=== PATIENT | male | born 1990 | race Caucasian/White ===

== ENCOUNTER 2017-08-15 21:17 | Emergency (ER) | payer OTHER ==
[2013-05-10 08:04] VITALS: BMI 41.4
[~2017-08-15 21:17] MED LIST: NORCO 5/325 TAB1 TA1 PO
[2017-08-15 21:58] LABS: BASOPHILS 0.3 % (0-2); EOSINOPHILS 1.5 % (0-7); HEMOGLOBIN 14.5 g/dL (13.5-17.5); IMMATURE GRANULOCYTES 0.8 % (0-5); LYMPHOCYTES 33.7 % (15-50); MCH 29.8 pg (26.0-34.0); MCHC 33.7 g/dL (31.0-37.0); MCV 88.5 fL (80.0-100.0); MEAN PLATELET VOLUME 11.6 fL (7.4-10.4); MONOCYTES 10.8 % (2-11); NEUTROPHILS 52.9 % (40-80); PLATELET COUNT 198 10x3/uL (130-400); RBC 4.86 10x6/uL (4.20-6.10); RDW 13.3 % (11.5-14.5); WBC 11.8 10x3/uL (4.8-10.8)
[2017-08-15 22:10] LABS: ALBUMIN 3.4 g/dL (3.4-5.0); ALKALINE PHOSPHATASE 52 U/L (46-116); ALT (SGPT) 50 U/L (10-68); BILIRUBIN - TOTAL 0.56 mg/dL (0.2-1.3); CALC OSMOLALITY 277 mosm/kg (275-300); CALCIUM 8.3 mg/dL (8.5-10.1); CHLORIDE - SERUM 105 mmol/L (98-107); CREATININE - SERUM 1.2 mg/dL (0.6-1.3); GLUCOSE 101 mg/dL (74-106); POTASSIUM - SERUM 3.8 mmol/L (3.5-5.1); PROTEIN - SERUM 6.4 g/dL (6.4-8.2); SODIUM 138 mmol/L (136-145); UREA NITROGEN 17 mg/dL (7-18); eGFR NON AFRICAN AMERICAN 76 mL/min (90-120)
[2017-08-15 22:34] LABS: CKMB 5.1 U/L (0.0-3.6); CREATINE KINASE 312 UL (21-232)
[2017-08-15 22:53] LABS: TROPONIN-I < 0.017 ng/mL (0.000-0.060)
== END 2017-08-16 00:10 | disposition home or self-care (01) ==
LOC: D.ER 21:17
PROVIDERS: Family Medicine
DX: R09.1 Pleurisy (principal); R07.89 Other chest pain; J20.9 Acute bronchitis, unspecified; F17.200 Nicotine dependence, unspecified, uncomplicated; R00.1 Bradycardia, unspecified

== ENCOUNTER 2017-11-14 21:35 | Emergency (ER) | payer OTHER ==
[2013-05-10 08:04] VITALS: BMI 41.4
[2017-11-14 23:20] LABS: BASOPHILS 0.3 % (0-2); EOSINOPHILS 2.6 % (0-7); HEMATOCRIT 44.4 % (42.0-54.0); HEMOGLOBIN 15.5 g/dL (13.5-17.5); IMMATURE GRANULOCYTES 0.3 % (0-5); LYMPHOCYTES 22.2 % (15-50); MCH 30.4 pg (26.0-34.0); MCHC 34.9 g/dL (31.0-37.0); MCV 87.1 fL (80.0-100.0); MEAN PLATELET VOLUME 11.4 fL (7.4-10.4); NEUTROPHILS 64.6 % (40-80); PLATELET COUNT 190 10x3/uL (130-400); RDW 13.3 % (11.5-14.5); WBC 9.5 10x3/uL (4.8-10.8)
[2017-11-14 23:38] LABS: ALBUMIN 3.5 g/dL (3.4-5.0); ANION GAP 9.7 mmol/L (8-16); BILIRUBIN - TOTAL 0.99 mg/dL (0.2-1.3); CALCIUM 8.8 mg/dL (8.5-10.1); CARBON DIOXIDE 29.9 mmol/L (21.0-32.0); CREATININE - SERUM 1.3 mg/dL (0.6-1.3); POTASSIUM - SERUM 3.6 mmol/L (3.5-5.1); PROTEIN - SERUM 6.3 g/dL (6.4-8.2)
== END 2017-11-15 00:08 | disposition home or self-care (01) ==
LOC: D.ER 21:35
PROVIDERS: Physician Assistant Medical
DX: J45.901 Unspecified asthma with (acute) exacerbation (principal)

== ENCOUNTER → 2017-12-15 09:06 | Outpatient (CLI) | payer OTHER ==
[2013-05-10 08:04] VITALS: BMI 41.4
== END | disposition home or self-care (01) ==
LOC: D.NM 09:06
DX: R10.11 Right upper quadrant pain (principal)

== ENCOUNTER 2018-01-01 07:56 | Day surgery (SDC) | payer OTHER ==
[~2018-01-01] VITALS: Ht 193 cm; Wt 158.3 kg
--- NOTE | ~2018-01-01 | OP ---
PATIENT NAME: AMINTA KANG MEDICAL RECORD: [id number] :86 LOCATION:[facility] ADMISSION DATE: SURGEON: INOCENTE POSADA MD DATE OF OPERATION: 01/01/2018 PREOPERATIVE DIAGNOSES: 1. Biliary dyskinesia. 2. Hypertension. 3. Asthma. 4. Morbid obesity with a body mass index of 42. POSTOPERATIVE DIAGNOSES: 1. Biliary dyskinesia. 2. Hypertension. 3. Asthma. 4. Morbid obesity with a body mass index of 42. PROCEDURE: Laparoscopic cholecystectomy. SURGEON: Inocente Posada MD REPORT OF PROCEDURE: The patient's abdomen was prepped and draped in sterile fashion. A cutdown was made on the superior aspect of the umbilicus, 0 Vicryls were placed in the fascia bilaterally and the fascia was incised with 15-blade. I then bluntly entered the peritoneal cavity and placed a 12-mm John port. Under direct visualization, a 5-mm trocar was placed in the epigastrium and two more 5-mm trocars were placed in the right subcostal region. The gallbladder was grasped and elevated. The cystic artery and cystic duct were dissected free and these were clipped proximally and distally and ligated in standard fashion. The gallbladder was then taken off the liver bed using electrocautery and placed into the right upper quadrant. Any bleeding from the liver bed was treated with electrocautery. At this point, the ports and insufflation were then removed and the gallbladder was taken out through the umbilicus. The umbilical fascia was closed with interrupted 0 Vicryls times 3. The wounds were then irrigated out with normal saline, infused with 10 mL of 0.25% Marcaine with epinephrine. The skin incisions were all closed with subcutaneous 5-0 Monocryl and dressed appropriately. COMPLICATIONS: None. CONDITION: Stable. ANESTHESIA: General endotracheal and local. BLOOD LOSS: Minimal. TRANSINT:[id number] Voice Confirmation ID: [id number] DOCUMENT ID: [id number] OPERATIVE REPORT [id number] AMINTA KANG CHRISTIAN MD CC: RHEA MAHONEY [id number] DICTATION DATE: 01/01/18 1252 FLOAT OPERATOR: 01/01/18 [address] [place] [id number]
[2018-01-01 09:00] LABS: BASOPHILS 0.4 % (0-2); EOSINOPHILS 4.3 % (0-7); HEMATOCRIT 44.5 % (42.0-54.0); HEMOGLOBIN 15.3 g/dL (13.5-17.5); IMMATURE GRANULOCYTES 0.6 % (0-5); LYMPHOCYTES 31.3 % (15-50); MCH 30.1 pg (26.0-34.0); MCHC 34.4 g/dL (31.0-37.0); MCV 87.6 fL (80.0-100.0); MEAN PLATELET VOLUME 11.6 fL (7.4-10.4); MONOCYTES 9.1 % (2-11); NEUTROPHILS 54.3 % (40-80); PLATELET COUNT 197 10x3/uL (130-400); RBC 5.08 10x6/uL (4.20-6.10); RDW 13.2 % (11.5-14.5); WBC 8.2 10x3/uL (4.8-10.8)
[2018-01-01 09:12] LABS: CALC OSMOLALITY 279 mosm/kg (275-300); CALCIUM 8.5 mg/dL (8.5-10.1); CARBON DIOXIDE 28.4 mmol/L (21.0-32.0); CHLORIDE - SERUM 104 mmol/L (98-107); GLUCOSE 103 mg/dL (74-106); POTASSIUM - SERUM 4.4 mmol/L (3.5-5.1); SODIUM 139 mmol/L (136-145); UREA NITROGEN 17 mg/dL (7-18); eGFR NON AFRICAN AMERICAN > 90 mL/min (90-120)
[2018-01-01] MEDS ORDERED: PROZAC40 MG PO (09:37)
[2018-01-01 09:39] VITALS: BP 124/63; Ht 193 cm; Wt 158.3 kg
[2018-01-01] MEDS ORDERED: HYDROCODONE-APA1 TAB PO (12:49)
== END 2018-01-01 16:50 | disposition home or self-care (01) ==
LOC: D.OPS 07:56 → D.PAN 10:00 → D.OPS 10:00
PROVIDERS: Surgery
DX: K82.8 Other specified diseases of gallbladder (principal); I10 Essential (primary) hypertension; J45.909 Unspecified asthma, uncomplicated; E66.01 Morbid (severe) obesity due to excess calories; Z68.41 Body mass index [BMI] 40.0-44.9, adult; Z01.812 Encounter for preprocedural laboratory examination

== ENCOUNTER 2020-08-09 20:27 | Emergency (ER) | payer MEDICAID ==
[~2020-08-09] VITALS: Ht 193 cm; Wt 176.8 kg
[~2020-08-09 20:27] MED LIST changes: +HYDROCODONE-APA1 TAB PO; +PROZAC40 MG PO
[2020-08-09 20:36] VITALS: Ht 193 cm; Wt 176.8 kg
[2020-08-09] MEDS ORDERED: DICLOFENAC SODI50 MG PO (20:39)
[2020-08-09] MEDS ORDERED: AUGMENTIN 875-11 TAB PO (23:02)
[2020-08-09] MEDS ORDERED: STERAPRED DS 1210 MG PO (23:02)
[2020-08-09 23:37] VITALS: BP 108/47
== END 2020-08-09 23:49 | disposition home or self-care (01) ==
LOC: D.ER 20:27
DX: J32.9 Chronic sinusitis, unspecified (principal); R51 Headache; M54.9 Dorsalgia, unspecified; J44.9 Chronic obstructive pulmonary disease, unspecified

== ENCOUNTER 2021-02-05 11:10 | Emergency (ER) | payer BC ==
[~2021-02-05] VITALS: Ht 193 cm; Wt 175.5 kg
[~2021-02-05 11:10] MED LIST changes: +AUGMENTIN 875-11 TAB PO; +DICLOFENAC SODI50 MG PO; +STERAPRED DS 1210 MG PO
[2021-02-05 11:14] VITALS: Ht 193 cm; Wt 175.5 kg
[2021-02-05] MEDS ORDERED: HYDROCODONE-AC1 EAC2 PO (12:23)
[2021-02-05 12:49] VITALS: BP 149/86
== END 2021-02-05 12:50 | disposition home or self-care (01) ==
LOC: D.ER 11:10
DX: M25.561 Pain in right knee (principal); E66.01 Morbid (severe) obesity due to excess calories; J44.9 Chronic obstructive pulmonary disease, unspecified

== ENCOUNTER 2021-04-18 05:11 | Day surgery (SDC) | payer BC ==
[~2021-04-18] VITALS: Ht 193 cm; Wt 172.4 kg
[~2021-04-18 05:11] MED LIST changes: +ADIPEX-P37.5 M1 PO; +HCTZ25 MG PO; +HYDROCODON-ACE1 EA10 PO; +HYDROCODONE-AC1 EAC2 PO; +NAPROSYN500 MG PO
[2021-04-18 06:11] LABS: CALC OSMOLALITY 279 mosm/kg (275-300); CALCIUM 8.4 mg/dL (8.5-10.1); CARBON DIOXIDE 24.5 mmol/L (21.0-32.0); CHLORIDE - SERUM 106 mmol/L (98-107); CREATININE - SERUM 0.9 mg/dL (0.6-1.3); POTASSIUM - SERUM 3.9 mmol/L (3.5-5.1); SODIUM 139 mmol/L (136-145); UREA NITROGEN 11 mg/dL (7-18); eGFR NON AFRICAN AMERICAN > 90 mL/min (90-120)
[2021-04-18 06:12] LABS: GLUCOSE 157 mg/dL (74-106)
[2021-04-18 06:24] LABS: HEMATOCRIT 42.6 % (42.0-54.0); HEMOGLOBIN 14.7 g/dL (13.5-17.5); MCH 29.2 pg (26.0-34.0); MCHC 34.6 g/dL (31.0-37.0); MCV 84.6 fL (80.0-100.0); RBC 5.04 10x6/uL (4.20-6.10); RDW 14.3 % (11.5-14.5); WBC 7.1 10x3/uL (4.8-10.8)
[2021-04-18 06:31] VITALS: BP 131/64; Ht 193 cm; Wt 172.4 kg
--- NOTE | 2021-04-18 10:29 | NUR ---
DC TEACHING COMPLETE TO PT AND GF. VERBALIZED UNDERSTANDING. 1050 PAIN MED GIVEN WITH SPRITE 1111 PIV DC'D WITH CATHETER INTACT, GF HELPING PT TO DRESS 1122 DC'D VIA WC BY THIS NURSE WITH ALL BELONGINGS AND DC PACKET TO POV WITH GF DRIVING.
--- NOTE | 2021-04-19 08:58 | OP ---
PATIENT NAME: AMINTA KANG MEDICAL RECORD: [id number] :88 LOCATION:[facility] ADMISSION DATE: SURGEON: ERROL MEADOWS MD DATE OF OPERATION: 04/18/2021 PREOPERATIVE DIAGNOSES: 1. Right knee pain. 2. Chondromalacia. 3. Possible medial meniscus tear. POSTOPERATIVE DIAGNOSES: 1. Right knee pain. 2. Chondromalacia. PROCEDURE PERFORMED: Right knee scope with chondroplasty and limited synovectomy. INDICATIONS FOR THE PROCEDURE: The patient is a 31-year-old male who injured his knee a few months ago while moving. He was putting pressure against his knee when he felt it shift and has been having pain in the patellofemoral region ever since. MRI was obtained showed some signal in the cartilage as well as along the medial meniscus. We have attempted treatment with therapy, but he has continued to have pain in his knee and has elected to proceed with surgery for knee arthroscopy. Risks, benefits and alternatives of surgery were discussed with the patient and consent was obtained. DESCRIPTION OF PROCEDURE: The patient was met in the holding area where his identity and confirmation of procedure was performed. The right lower extremity was marked. He was taken to the operating room and he was placed supine on the operating table and anesthesia was administered. Tourniquet was applied to the right thigh and the right leg was positioned in the leg gardner. Right lower extremity was prepped and draped in a sterile fashion. The patient received preoperative antibiotics and timeout was performed before initiating the case. On initiation of the case the leg was exsanguinated and the tourniquet was raised. Total tourniquet time was 47 minutes. We began with placement of our superior medial portal and inserted the cannula and filled the knee with fluid. We then placed our anterior lateral portal, inserted the camera and placed our anterior medial portal under direct visualization. Diagnostic knee arthroscopy was performed. There was some thickening of the capsule in the suprapatellar pouch. The patella and trochlea were in good condition. The medial and lateral gutters were clear. Medial compartment showed fissuring along the inner border of the medial femoral condyle and grade I chondromalacia of the medial tibial plateau. The meniscus appeared to be okay. The ACL was intact. Lateral compartment showed a grade I-II chondromalacia of the lateral tibial plateau. The lateral femoral condyle and meniscus were okay. A limited synovectomy was performed at the tissues of the anterior knee and the infrapatellar fat pad. We were then able to visualize the fissuring better and it appeared to extend along the weightbearing surface of that inner border of the medial femoral condyle approximately 2 x 2 cm area. We therefore decided to perform KIAN harvest for potential procedure in the future. A ring curette was used to harvest cartilage from the inner border of the lateral femoral condyle. Two good pieces were obtained and will be sent for specimen. Limited synovectomy was performed at the suprapatellar pouch as well and this completed our procedure. Before and after images were obtained. The instruments were removed and fluid was drained from the knee. Portal sites were infiltrated with 0.25% Marcaine with OPERATIVE REPORT [id number] AMINTA KANG epinephrine. These were closed with nylon suture and a sterile dressing was placed. The patient was turned back over to anesthesia. He was awakened and taken to recovery room in stable condition. POSTOPERATIVE PLAN: The patient is going to return home with his family. He may be weightbearing as tolerated on the right lower extremity and we will get started back with physical therapy next week. Plan to see him back in clinic in 2 weeks. COMPLICATIONS: None. ESTIMATED BLOOD LOSS: 5 mL. ANESTHESIA: General. TRANSINT:[id number] Voice Confirmation ID: [id number] DOCUMENT ID: [id number] ERROL MEADOWS MD at 0858 CC: [id number] DICTATION DATE: 04/18/21919 VIRTUALIZATION ARCHITECT: 04/18/21 1044 [facility] 04/18/[address] [id number]
== END 2021-04-18 11:22 | disposition home or self-care (01) ==
LOC: D.OPS 05:11
PROVIDERS: Anesthesiology; ATTEND Orthopaedic Surgery
DX: M25.561 Pain in right knee (principal); M22.41 Chondromalacia patellae, right knee; I10 Essential (primary) hypertension; J45.909 Unspecified asthma, uncomplicated; S83.241D Other tear of medial meniscus, current injury, right knee, subsequent encounter

== ENCOUNTER 2021-04-21 17:41 | Emergency (ER) | payer BC ==
[~2021-04-21] VITALS: Ht 193 cm; Wt 176.8 kg
[2021-04-21 17:45] VITALS: BP 144/83; Ht 193 cm; Wt 176.8 kg
[2021-04-21 18:23] LABS: EOSINOPHILS 3.5 % (0-7); HEMATOCRIT 41.5 % (42.0-54.0); HEMOGLOBIN 14.2 g/dL (13.5-17.5); LYMPHOCYTES 28.4 % (15-50); MCHC 34.3 g/dL (31.0-37.0); MCV 84.5 fL (80.0-100.0); MEAN PLATELET VOLUME 9.6 fL (7.4-10.4); MONOCYTES 8.3 % (2-11); NEUTROPHILS 58.8 % (40-80); PLATELET COUNT 199 10x3/uL (130-400); RBC 4.91 10x6/uL (4.20-6.10); RDW 13.9 % (11.5-14.5); WBC 8.1 10x3/uL (4.8-10.8)
[2021-04-21 18:32] LABS: CALC OSMOLALITY 289 mosm/kg (275-300); CALCIUM 8.9 mg/dL (8.5-10.1); CHLORIDE - SERUM 106 mmol/L (98-107); GLUCOSE 150 mg/dL (74-106); POTASSIUM - SERUM 3.8 mmol/L (3.5-5.1); SODIUM 142 mmol/L (136-145); UREA NITROGEN 23 mg/dL (7-18); eGFR NON AFRICAN AMERICAN > 90 mL/min (90-120)
[2021-04-21 18:37] LABS: ALBUMIN 3.6 g/dL (3.4-5.0); ALKALINE PHOSPHATASE 60 U/L (30-120); ALT (SGPT) 64 U/L (10-68); PROTEIN - SERUM 6.6 g/dL (6.4-8.2)
[2021-04-21 18:42] LABS: C-REACTIVE PROTEIN < 0.2 mg/dL (0.0-0.9)
[2021-04-21 19:27] LABS: ERYTHROCYTE SEDIMENTATION RATE 15 mm/hr (0-15)
[2021-04-21] MEDS ORDERED: OMNICEF300 MG PO (19:42)
== END 2021-04-21 20:31 | disposition home or self-care (01) ==
LOC: D.ER 17:41
PROVIDERS: Family Medicine
DX: G89.18 Other acute postprocedural pain (principal); M79.10 Myalgia, unspecified site; M25.561 Pain in right knee; I10 Essential (primary) hypertension; J44.9 Chronic obstructive pulmonary disease, unspecified; Z72.0 Tobacco use